=== PATIENT | male | born 1970 | race Caucasian/White ===

== ENCOUNTER 2016-10-09 17:47 | Emergency (ER) | payer OTHER ==
[2016-10-09 17:55] VITALS: TEMP 97.6; O2SAT 99
--- NOTE | 2016-10-09 18:26 | C.PDOC ---
History Of Present Illness 46-year-old male, is brought to the emergency department by mom, who is requesting detox. Patient currently withdrawing. States he was in senior living for 24 hours, and has not had any drugs. Patient has no vomiting, diarrhea or fever. Time Seen by Provider: 10/09/16 18:03 Chief Complaint (Nursing): Substance Abuse History Per: Patient, Family History/Exam Limitations: no limitations Onset/Duration Of Symptoms: Days Current Symptoms Are (Timing): Still Present Past Medical History Reviewed: Historical Data, Nursing Documentation, Vital Signs Vital Signs: Last Vital Signs Temp 97.6 F 10/09/16 18:44 Pulse 60 10/09/16 18:44 Resp 16 10/09/16 18:44 BP 120/78 10/09/16 18:44 Pulse Ox 99 10/10/16 17:32 - [facility] Procedures DETOXIFICATION SERVICES FOR SUBSTANCE ABUSE TREATMENT (12/14/15) Family History: States: Unknown Family Hx - Social History Hx Tobacco Use: Yes Hx Alcohol Use: Yes Hx Substance Use: Yes Review Of Systems Except As Marked, All Systems Reviewed And Found Negative. Constitutional: Negative for: Fever Gastrointestinal: Negative for: Nausea, Vomiting Musculoskeletal: Negative for: Back Pain Skin: Negative for: Rash Neurological: Negative for: Weakness, Numbness Physical Exam - Physical Exam Appears: Non-toxic, No Acute Distress Skin: Warm, Dry, No Rash Eye(s): bilateral: Normal Inspection, PERRL Nose: Normal Oral Mucosa: Moist Lips: Normal Appearing Neck: Normal ROM Cardiovascular: Rhythm Regular Respiratory: Normal Breath Sounds, No Accessory Muscle Use Extremity: Normal ROM Neurological/Psych: Oriented x3, Normal Speech ED Course And Treatment O2 Sat by Pulse Oximetry: 99 Progress Note: DETOX (NO BEDS). Case was discussed w/ squadron worker, who states that there are no detox beds available. Patient made aware; Pt will be discharged w/ a list of detox programs, and information for the detox co- ordinator/instructions for pre-screening process. Patient is agreeable with plan. All questions answered. Disposition - Disposition Disposition: HOME/ ROUTINE Disposition Time: 18:26 Condition: GOOD Additional Instructions: Call to see when a bed is open - Clinical Impression Clinical Impression: Opioid abuse - Scribe Statement The provider has reviewed the documentation as recorded by the Mieshaibevan Kuo All medical record entries made by the Scribe were at my direction and personally dictated by me. I have reviewed the chart and agree that the record accurately reflects my personal performance of the history, physical exam, medical decision making, and the department course for this patient. I have also personally directed, reviewed, and agree with the discharge instructions and disposition.
[2016-10-09 18:45] VITALS: BP 120/78; PULSE 60; RESP 16
== END 2016-10-09 18:30 | disposition home or self-care (01) ==
LOC: C.ER 17:47
DX: F11.10 Opioid abuse, uncomplicated (principal)

== ENCOUNTER 2017-01-19 01:43 | Emergency (ER) | payer SELFPAY ==
[2017-01-19 01:52] VITALS: RESP 20; O2SAT 98
--- NOTE | 2017-01-19 03:09 | C.PDOC ---
History Of Present Illness Patient was brought in by EMS and escorted by [place] police for public intoxication today. Patient claims he was riding his bike and was signing, but was being disruptive to traffic. Admits to heroin abuse tonight. Patient has multiple prior evaluations for substance abuse. Denies any somatic complaints at this time. Time Seen by Provider: 01/19/17 02:45 Chief Complaint (Nursing): Substance Abuse History Per: Patient History/Exam Limitations: no limitations Onset/Duration Of Symptoms: Hrs Current Symptoms Are (Timing): Still Present Suicide/Self Injury Attempted (Context): None Modifying Factor(s): Alcohol Severity: Mild Associated Symptoms: denies: Suicidal Thoughts, Suicidal Plan Involuntary Hold By: None Recent travel outside of the [place]: No Additional History Per: Patient Past Medical History Reviewed: Historical Data, Nursing Documentation, Vital Signs Vital Signs: Last Vital Signs Temp 98 F 01/19/17 03:15 Pulse 90 01/19/17 03:15 Resp 20 01/19/17 03:15 BP 148/70 01/19/17 03:15 Pulse Ox 98 01/19/17 05:17 - Medical History PMH: Denies: Diabetes, Hepatitis, HIV, HTN, Chronic Kidney Disease, Seizures, Sexually Transmitted Disease - [facility] DETOXIFICATION SERVICES FOR SUBSTANCE ABUSE TREATMENT (12/14/15) Family History: States: Unknown Family Hx - Social History Hx Tobacco Use: Yes Hx Alcohol Use: No Hx Substance Use: Yes - Immunization History Hx Tetanus Toxoid Vaccination: No Hx Influenza Vaccination: No Hx Pneumococcal Vaccination: No Review Of Systems Except As Marked, All Systems Reviewed And Found Negative. Constitutional: Positive for: Other (Alcohol intoxication). Negative for: Fever , Chills Cardiovascular: Negative for: Chest Pain, Palpitations, Light Headedness Respiratory: Negative for: Shortness of Breath Gastrointestinal: Negative for: Nausea, Vomiting, Abdominal Pain Neurological: Negative for: Weakness, Numbness Physical Exam - Physical Exam Appears: Non-toxic, No Acute Distress, Other (Loud, difficult to direction, and uncooperative. Thin white male) Skin: Warm, Dry Head: Atraumatic, Normacephalic Cardiovascular: Rhythm Regular Respiratory: Normal Breath Sounds, No Rales, No Rhonchi, No Wheezing Gastrointestinal/Abdominal: Soft, No Tenderness Neurological/Psych: Oriented x3 (Awake and alert), Other (No focal deficit) ED Course And Treatment O2 Sat by Pulse Oximetry: 98 (RA) Pulse Ox Interpretation: Normal Reevaluation Time: 03:08 Reassessment Condition: Improved (calm, cooperative) Medical Decision Making Medical Decision Making: Impression: Patient was brought in by EMS and escorted by [place] police for public intoxication today. Plans: * ED obs * Reassess probable intoxication, now clinically sober, wants d/c to home. Disposition Doctor Will See Patient In The: Office Counseled Patient/Family Regarding: Studies Performed, Diagnosis - Disposition Referrals: [facility] [Outside] [facility] [Outside] [facility] [Outside] Disposition: HOME/ ROUTINE Disposition Time: 03:09 Condition: GOOD Additional Instructions: avoid substance abuse Seek help through our detox and substance abuse services Instructions: Narcotic Abuse (ED) Forms: [facility] ([place]) - Clinical Impression Clinical Impression: Drug abuse - Scribe Statement The provider has reviewed the documentation as recorded by the Scribe Cuate pascual All medical record entries made by the Scribe were at my direction and personally dictated by me. I have reviewed the chart and agree that the record accurately reflects my personal performance of the history, physical exam, medical decision making, and the department course for this patient. I have also personally directed, reviewed, and agree with the discharge instructions and disposition.
[2017-01-19 03:16] VITALS: BP 148/70; PULSE 90; TEMP 98
== END 2017-01-19 03:23 | disposition home or self-care (01) ==
LOC: C.ER 01:43
DX: F11.10 Opioid abuse, uncomplicated (principal)